=== PATIENT | male | born 1980 | race Caucasian/White ===

== ENCOUNTER 2017-06-12 19:48 | Emergency (ER) | payer BC ==
[2017-06-12 20:03] VITALS: BP 103/74; PULSE 70; RESP 18; TEMP 97.9; O2SAT 96
[2017-06-12] MEDS ORDERED: HYDROCOD/APAP 5/325 PREPACK#6 BTL TAKEHOME ONE (20:27)
--- NOTE | 2017-06-12 20:28 | EDPHY ---
H & P Time Seen by Provider: 06/12/17 19:58 HPI/ROS: 37-year-old male right-hand dominant presents complaining of slammed his left thumb on in his tailgate of his car. Review of systems As per HPI General no fever no chills no weakness HEENT no eye pain no eye discharge. No eye redness, no sore throat Respiratory no cough, no shortness of breath Cardiac no chest pain, no peripheral edema GI no abdominal pain, no diarrhea, no constipation, no nausea, no vomiting no flank pain, no hematuria, no dysuria Musculoskeletal no myalgias, positive joint pain Heme no easy bruising, no easy bleeding Endo no polyuria, no polydipsia Skin no rashes, no pruritus Neuro no syncope, no dizziness, no headaches Psych is no suicidal ideation, no homicidal ideation Past Medical/Surgical History: Prior hand surgery Social History: Denies alcohol or drug use Smoking Status: Former smoker Physical Exam: 37-year-old male Alert and oriented in no acute distress nontoxic appearance, afebrile Atraumatic normocephalic Neck no JVD Lungs clear to auscultation, no respiratory distress Heart regular rate and rhythm Extremities no cyanosis clubbing edema Left hand left thumb-full range of motion, good capillary refill Ecchymoses to distal thumb tip, small subunguall hematoma, less than 25% of nail Constitutional: Initial Vital Signs Temperature (C) 36.6 C 06/12/17 20:00 Heart Rate 70 06/12/17 20:00 Respiratory Rate 18 06/12/17 20:00 Blood Pressure 103/74 06/12/17 20:00 O2 Sat (%) 96 06/12/17 20:00 O2 Delivery Mode Room Air Allergies/Adverse Reactions: ketorolac tromethamine [From Toradol] Allergy (Verified 06/12/17 20:03) Home Medications: Medication Instructions Recorded Hydrocodone/Acetaminophen [[place] 1 tab PO Q6H PRN #12 tab 06/12/17 5/325 (*)] Medical Decision Making - Diagnostics Imaging Results: Imaging Impressions Finger X-Ray 06/12/17 19:59 Impression: 1. Nondisplaced fracture distal tuft left thumb. ED Course/Re-evaluation: Patient seen and evaluated for left thumb injury. Differential diagnosis considered Thumb contusion, subungual hematoma, thumb abrasion, thumb fracture X-ray with distal tuft fracture nondisplaced Impression Left thumb distal tuft fracture Very minimal subungual hematoma Plan Splint Rest ice elevate Short-term [place] prescription, 12. - Data Points Medications Given: Discontinued Medications Hydrocodone Bitart/Acetaminophen ([place] 5/325mg Prepack#6) 1 btl TAKEHOME [facility]NOW ONE Stop: 06/12/17 20:28 Last Admin: 06/12/17 20:34 Dose: 1 btl Departure - Departure Disposition: Home, Routine, Self-Care Clinical Impression: Closed fracture of tuft of distal phalanx of left thumb Condition: Good Instructions: Hydrocodone/Acetaminophen (By mouth), Finger Fracture (ED) Referrals: NONE *PRIMARY CARE P,. [Primary Care Provider] - As per Instructions Stand Alone Forms: Work Excuse Prescriptions: Hydrocodone/Acetaminophen [[place] 5/325 (*)] 1 tab PO Q6H PRN #12 tab PRN Reason: Pain, Severe
== END 2017-06-12 20:40 | disposition home or self-care (01) ==
LOC: CED 19:48
DX: S62.522A Displaced fracture of distal phalanx of left thumb, initial encounter for closed fracture (principal); Z87.891 Personal history of nicotine dependence; W23.1XXA Caught, crushed, jammed, or pinched between stationary objects, initial encounter
CPT/HCPCS: 73140-PO; L3925